=== PATIENT | male | born 1945 | race Two or more races ===

== ENCOUNTER → 2023-12-05 | Outpatient (CLI) | payer MEDICARE ==
[2023-12-05 18:50] LABS: BASO # 0.1 10^3/uL (0.0-0.2); BASO % 1.4 % (0.0-1.0); EOS # 0.3 10^3/uL (0.0-0.5); EOS % 3.1 % (0.0-3.0); LYMPH # 1.8 10^3/uL (1.5-5.0); MEAN CORPUSCULAR HGB CONC 33.3 g/dl (32.0-36.5); MEAN CORPUSCULAR VOLUME 92.9 fl (80.0-96.0); MONO # 0.5 10^3/uL (0.0-0.8); MONO % 6.2 % (2.0-8.0); NEUTROPHILS # 5.9 10^3/uL (1.5-8.5); NEUTROPHILS % 67.7 % (36.0-66.0); PLATELET COUNT, AUTOMATED 328 10^3/uL (150-450); RED BLOOD COUNT 4.52 10^6/uL (4.30-6.10); WHITE BLOOD COUNT 8.7 10^3/uL (4.0-10.0)
[2023-12-05 19:09] LABS: PSA SCREENING 4.12 NG/ML (< 4.00)
[2023-12-05 19:12] LABS: ALBUMIN 3.9 G/DL (3.2-5.2); ALKALINE PHOSPHATASE 85 U/L (46-116); ALT/SGPT 47 U/L (7.0-40); AST/SGOT 26 U/L (<34); BILIRUBIN,TOTAL 0.4 MG/DL (0.3-1.2); BLOOD UREA NITROGEN 16 MG/DL (9-23); CALCIUM LEVEL 9.4 MG/DL (8.3-10.6); CARBON DIOXIDE LEVEL 29 MMOL/L (20-31); CHLORIDE LEVEL 105 MMOL/L (98-107); CHOLESTEROL LEVEL 178 MG/DL (<200); CHOLESTEROL RISK RATIO 4.64 (<5); CREATININE FOR GFR 1.04 MG/DL (0.70-1.30); GLOMERULAR FILTRATION RATE > 60.0 (>42); GLUCOSE, FASTING 76 MG/DL (74-106); HDL CHOLESTEROL 38.3 MG/DL (>40); LDL CHOLESTEROL 95.1 MG/DL (<100); NON-HDL-C 139.7 MG/DL; SODIUM LEVEL 140 MMOL/L (136-145); TOTAL PROTEIN 7.3 G/DL (5.7-8.2); TRIGLYCERIDES LEVEL 223 MG/DL (<150)
[2023-12-05 19:13] LABS: THYROID STIMULATING HORMONE 0.588 uIU/ML (0.55-4.78)
== END ==
LOC: M PLALAB 14:44
PROVIDERS: ATTEND Nurse Practitioner Family
DX: R53.83 Other fatigue (principal); Z13.220 Encounter for screening for lipoid disorders; Z90.5 Acquired absence of kidney; Z12.5 Encounter for screening for malignant neoplasm of prostate; Z13.6 Encounter for screening for cardiovascular disorders
CPT/HCPCS: 36415; 80053; 80061; 84439; 84443; 85025; G0103

== ENCOUNTER 2024-02-25 08:10 | Day surgery (SDC) | payer MEDICARE ==
[~2024-02-25] VITALS: Ht 167.6 cm; Wt 66.5 kg
[~2024-02-25 08:10] MED LIST: LR 1,000 ML IV SCH; MIDAZOLAM INJ 2MG/2ML VIAL As Ordered ONE; MULTTAB61 PO; fentaNYL 100 MCG/2 ML INJECTION As Ordered ONE
[2024-02-25] MEDS: PHENYLEPHRINE 2.5% OPHTH SOL 2ML OS SCH (08:46)
[2024-02-25] MEDS: ATROPINE SULFATE 1% OPHTH SOLN 2ML BTL OS SCH (08:46)
[2024-02-25] MEDS: FLURBIPROFEN 0.03% OPHTH SOLN 2.5 ML OS SCH (08:46)
[2024-02-25] MEDS: TETRACAINE 0.5% OPHTH SOLN 4ML OS SCH (08:46)
[2024-02-25] MEDS: LIDOCAINE 1% SDV 5ML VIAL As Ordered ONE (09:41)
[2024-02-25] MEDS: TRYPAN BLUE 0.06 % 2.25 ML OPHTH SYR (VISIONBLUE) As Ordered ONE (09:44)
[2024-02-25] MEDS: CEFUROXIME 1MG/0.1ML INTRACAMERAL INJ As Ordered ONE (09:46)
[2024-02-25] MEDS: PROVISC 10 MG/ML 0.85ML SYRINGE As Ordered ONE (09:50)
[2024-02-25] MEDS: VISCOAT 40-30MG/ML 0.5ML SYRINGE As Ordered ONE (09:53)
[2024-02-25 10:24] VITALS: BP 121/58; TEMP 96.9; O2SAT 98
== END 2024-02-25 11:13 | disposition home or self-care (01) ==
LOC: M SDC 08:10
PROVIDERS: ATTEND Ophthalmology
DX: H40.10X0 Unspecified open-angle glaucoma, stage unspecified (principal); H25.12 Age-related nuclear cataract, left eye; H57.03 Miosis; F17.210 Nicotine dependence, cigarettes, uncomplicated
CPT/HCPCS: 65820; 66982; A4649; C1889; J0697; J2250; J3010; V2632

== ENCOUNTER 2025-02-16 07:59 | Day surgery (SDC) | payer MEDICARE ==
[~2025-02-16] VITALS: Ht 167.6 cm; Wt 71.2 kg
[~2025-02-16 07:59] MED LIST changes: +AMLO2.5T3 PO; +MIDAZOLAM INJ 2 MG/2 ML VIAL As Ordered ONE; -MIDAZOLAM INJ 2MG/2ML VIAL As Ordered ONE; +ROSU5TAB49 PO; -fentaNYL 100 MCG/2 ML INJECTION As Ordered ONE
[2025-02-16] MEDS: FLURBIPROFEN 0.03% OPHTH SOLN 2.5 ML OD SCH (09:43)
[2025-02-16] MEDS: TETRACAINE 0.5% OPHTH SOLN 4ML OD SCH (09:43)
[2025-02-16] MEDS: PHENYLEPHRINE 2.5% OPHTH SOL 2ML OD SCH (09:43)
[2025-02-16] MEDS: CYCLOPENTOLATE 1% OPHTH SOLN 2 ML BTL OD SCH (09:43)
[2025-02-16] MEDS: LIDOCAINE 1% SDV 5 ML VIAL As Ordered ONE (11:33)
[2025-02-16] MEDS: CEFUROXIME 1 MG/0.1 ML INTRACAMERAL INJ As Ordered ONE (11:33)
[2025-02-16 11:45] VITALS: BP 144/67; TEMP 97.1; O2SAT 97
== END 2025-02-16 12:14 | disposition home or self-care (01) ==
LOC: M SDC 07:59
PROVIDERS: ATTEND Ophthalmology
DX: H25.11 Age-related nuclear cataract, right eye (principal); I10 Essential (primary) hypertension; E78.00 Pure hypercholesterolemia, unspecified; Z79.899 Other long term (current) drug therapy; F17.210 Nicotine dependence, cigarettes, uncomplicated; Z98.42 Cataract extraction status, left eye; Z96.1 Presence of intraocular lens
CPT/HCPCS: 66984; J0697; J2250; J3010; V2632

== ENCOUNTER → 2025-06-03 | Outpatient (CLI) | payer MEDICARE ==
[~2025-06-03] MED LIST changes: -LR 1,000 ML IV SCH; -MIDAZOLAM INJ 2 MG/2 ML VIAL As Ordered ONE
[2025-06-03 14:30] LABS: ALT/SGPT 26.0 U/L (7.0-40); AST/SGOT 21.0 U/L (<34); CALCIUM LEVEL 8.9 MG/DL (8.3-10.6); CARBON DIOXIDE LEVEL 29.0 MMOL/L (20-31); CHLORIDE LEVEL 105.0 MMOL/L (98-107); CHOLESTEROL LEVEL 168.0 MG/DL (<200); CHOLESTEROL RISK RATIO 3.92 (<5); CREATININE FOR GFR 1.09 MG/DL (0.70-1.30); GLOMERULAR FILTRATION RATE 69.5 (>42); LDL CHOLESTEROL 96.8 MG/DL (<100); MAGNESIUM LEVEL 2.0 MG/DL (1.8-2.4); NON-HDL-C 125.2 MG/DL; POTASSIUM SERUM 4.2 MMOL/L (3.5-5.1); SODIUM LEVEL 144.0 MMOL/L (136-145); TRIGLYCERIDES LEVEL 142.0 MG/DL (<150)
[2025-06-03 14:39] LABS: BASO # 0.1 10^3/uL (0.0-0.2); BASO % 1.6 % (0.0-1.0); EOS # 0.5 10^3/uL (0.0-0.5); EOS % 6.9 % (0.0-3.0); LYMPH # 1.6 10^3/uL (1.5-5.0); LYMPH % 23.9 % (24.0-44.0); MONO # 0.6 10^3/uL (0.0-0.8); MONO % 8.1 % (2.0-8.0); NEUTROPHILS # 4.0 10^3/uL (1.5-8.5); NEUTROPHILS % 59.2 % (36.0-66.0); PLATELET COUNT, AUTOMATED 235 10^3/uL (150-450)
== END ==
LOC: M PLALAB 07:40
PROVIDERS: ATTEND Nurse Practitioner Family
DX: I10 Essential (primary) hypertension (principal); E78.2 Mixed hyperlipidemia